=== PATIENT | male | born 1975 | race Caucasian/White ===

== ENCOUNTER 2022-01-25 16:28 | Emergency (ER) | payer BC, SELFPAY ==
[2022-01-25 16:30] VITALS: BP 168/89; PULSE 71; RESP 14; TEMP 37.2; O2SAT 98; BMI 33.7
--- NOTE | 2022-01-25 17:05 | EX.ED.DYSGE1 ---
HPI History of Present Illness Chief Complaint: Rash Informant: patient Narrative Narrative: 47-year-old male presents to the emergency room on day 3 of poison kimberly rash. Patient notes that it is spread to his face chest arms legs. This is not a new problem for him. He notes that he is very sensitive to poison kimberly. PFSH PFS Medical History no medical history no medical history Home Medications prednisone See Rx Instructions .ROUTE .COMPLEX #24 tablet 01/25/22 [Rx Last Taken Unknown] Allergy/AdvReac Type Severity Reaction Status Date / Time DAIRY Allergy Anaphylaxis Uncoded 01/25/22 16:29 Social History (Updated 01/25/22 @ 17:[address] Deshawn Castillo, DO) current gender identity: male Smoking Status: Never smoker substance use type: does not use ROS ROS ED Constitutional Constitutional ED: Denies chills, fever(s) or weight loss Eyes Eyes: Denies change in vision or diplopia ENT ENT ED: Denies ear pain, rhinorrhea or sore throat Cardiovascular Cardiovascular: Denies chest pain, orthopnea, palpitations or racing heartbeat Respiratory/Chest Respiratory/Chest: Denies cough, dyspnea or orthopnea Gastrointestinal Gastrointestinal: Denies abdominal pain, diarrhea, nausea or vomiting Genitourinary Genitourinary ED: Denies dysuria, hematuria or urinary frequency Musculoskeletal Musculoskeletal: Denies arthralgias or myalgias Integumentary Reports rash; Denies abscess Neurologic Neurologic: Denies headache(s) or weakness Psychiatric Psychiatric: Denies anxiety, depression, suicidal ideation or suicidal thoughts Endocrine Endocrinology: Denies polydipsia, polyphagia or polyuria Allergic/Immunologic Allergic/Immunologic ED: Denies mouth swelling, tongue swelling or urticaria EXAM Physical Exam Const Vital Signs: 01/25/22 16:30 Temperature 98.9 F Temperature Source Temporal Pulse Rate 71 Respiratory Rate 14 Blood Pressure 168/89 H Blood Pressure Mean 115 Pulse Ox 98 Oxygen Delivery Method Room Air Positive well nourished and well developed General Appearance ED: well developed HEENT Reports normocephalic, head/scalp atraumatic, TM's clear and moist mucous membranes Negative for trauma Tympanic Membrane ED: Yes TM's clear Eyes PERRL and EOMs intact bilaterally Neck no lymphadenopathy, supple and no JVD Resp normal respiratory effort and clear to auscultation bilaterally Cardio regular rate, regular rhythm and no murmurs GI normal to inspection, nondistended, normoactive bowel sounds and non-tender Palpation: soft Back/Spine no CVA tenderness and normal ROM Extremity normal to inspection General Extremety ED: Negative for edema General Extremity: Negative for edema Neuro oriented x3 and CN's II-XII intact bilaterally Sensorium / Orientation: alert Motor Exam: strength 5/5 throughout Psych mental status grossly normal Mood & Affect: Negative for depressed or tearful Skin no wounds Skin Narrative: Patient has crusting of rash consistent with Leonie dermatitis on his arms chest face legs. No evidence of secondary infection MDM MDM MDM Narrative Medical decision making narrative: Patient received a dose of Kenalog and a prescription for prednisone for 12 days. He is to follow-up with primary care as needed return if worsening or concerns Discharge Plan Triage Chief Complaint: Rash ED Provider: Deshawn Castillo Dx/Rx/DC Orders Clinical Impression: Allergic dermatitis due to poison kimberly Instructions: ED Poison Kimberly Rash Prescriptions: New prednisone 20 MG tablet See Rx Instructions .ROUTE .COMPLEX Qty: 24 RF: 0 Primary Care Provider: Care Physician,No Primary Referrals: Care Physician,No Primary [Primary Care Provider] - Donnie Rios NP, [employer] [Nurse Practitioner] - As Needed (For primary care) Disposition Disposition: Home, Self Care
[2022-01-25] MEDS: Triamcinolone Acetonide 40 MG/ML Vial 80 MG IM (17:39)
== END 2022-01-25 17:48 | disposition home or self-care (01) ==
LOC: ED 17:07
PROVIDERS: Emergency Provider Emergency Medicine; Visit Provider Emergency Medicine
DX: L23.7 Allergic contact dermatitis due to plants, except food (principal)
CPT/HCPCS: 96372; 99282

== ENCOUNTER 2023-07-13 17:38 | Emergency (ER) | payer BC, SELFPAY ==
[2023-07-13 17:40] VITALS: BP 183/91; PULSE 98; RESP 14; TEMP 36.4; O2SAT 99; BMI 32.8
--- NOTE | 2023-07-13 18:00 | EX.ED.SAOD ---
HPI History of Present Illness Chief Complaint: Substance Abuse Narrative Narrative: 48-year-old male past medical history of previous alcohol abuse, states that he is detoxing on his own. He used to drink 10-15 shots of alcohol daily. 5 days ago, he quit cold turkey. He states he has done that in the past before and has never entered rehab. He presents with his today for evaluation because over the last 1 to 2 days, he began feeling shaky, with headaches. He denies any nausea or vomiting. No abdominal pain. No chest pain or shortness of breath, no other symptoms. He presents today, mainly to be checked out. [facility] Medical History Alcohol abuse Home Medications prednisone 20 mg tablet See Rx Instructions .Route .COMPLEX #24 TABLETS 01/25/22 [Rx Last Taken Unknown] Allergy/AdvReac Type Severity Reaction Status Date / Time milk [dairy] Allergy Anaphylaxis Verified 07/13/23 17:43 Social History Smoking Status: Never smoker substance use type: does not use ROS ROS ED ROS Narrative Constitutional: No fever, no chills. HEENT: No sore throat. No neck pain. No loss of vision. No rhinorrhea. Cardiovascular: No chest pain. No palpitations. No pedal edema. Respiratory: No cough, no shortness of breath. Abdominal: No abdominal pain. No nausea. No vomiting. Genitourinary: No dysuria. No hematuria. Musculoskeletal: No myalgias. No arthralgias. Neurologic: Positive headaches. No dizziness. No lightheadedness. Positive shakiness. Skin: No rash. No change in color. Psychiatric: No depression. No anxiety. No suicidal ideation. EXAM Physical Exam Narrative Exam Narrative: Afebrile. Vital signs noted. HEENT: Normocephalic. Atraumatic. PERRL, EOMI. Neck soft and supple. No point tenderness or step off. Cardiovascular: Regular rate and rhythm. No tachycardia. No murmurs, rubs, or gallops appreciated. Respiratory: No tachypnea. Lungs clear to auscultation bilaterally. Gastrointestinal: Abdomen soft, nontender, with normoactive bowel sounds. No rebound or guarding. Neurological: Awake. Alert. Nonfocal, nonlateralizing. No tremors. Skin: No rash. Normal color. No pallor. Musculoskeletal: No pedal edema. Full range of motion extremities. Const Vital Signs: 07/13/23 17:40 Temperature 97.6 F L Temperature Source Temporal Pulse Rate 98 Respiratory Rate 14 Blood Pressure 183/91 H Blood Pressure Mean 121 Pulse Ox 99 Oxygen Delivery Method Room Air MDM MDM MDM Narrative Medical decision making narrative: I had a lengthy discussion with the patient and his . He states he does not want inpatient detox. Additionally, he is already 5 days out from his last drink of alcohol. He does have elevated blood pressure here of 183/91. He has not seen a primary care provider, and he may have underlying hypertension at baseline. While he is more than 24 to 48 hours out from his last drink of alcohol, and is at lower risk for seizure/withdrawal seizure, he was told of the risk that there is possibility of withdrawal seizures and other complications. Patient is insistent that he does not want inpatient detox, to be admitted to the hospital, and he states that he has successfully detoxed by himself previously. I discussed with him outpatient treatment for his alcoholism/alcohol abuse, he is more accepting of that. He will be given a one-time dose of Librium 50 mg here in the emergency department. I do feel that he can be discharged safely home with follow-up to primary care provider and outpatient detox/180. Additionally, I did speak with social work who gave him outpatient information. Return instructions to the emergency department were reviewed. Disposition is discharged home in stable condition. History & Record Review Discussion w/independent historian: Patient and Family Additional record(s) reviewed:: Prior ED visit Discharge Plan Triage Chief Complaint: Substance Abuse ED Provider: Bin Roman Dx/Rx/DC Orders Clinical Impression: Alcohol abuse, Alcohol withdrawal, Elevated blood pressure reading without diagnosis of hypertension Instructions: Alcohol Withdrawal: What to Expect, ED Withdrawal Alcohol, ED Alcohol Abuse Prescriptions: No Action prednisone 20 MG tablet See Rx Instructions .ROUTE .COMPLEX Qty: 24 0RF Rx Instructions: 3 tabs p.o. daily days 1 through 4, then 2 tabs p.o. daily days 5 through 8, then 1 tab p.o. daily day 9 through 12 Primary Care Provider: Care Physician,No Primary Referrals: Counseling,Center [Group of Physicians] - 2 Days Edwin Milligan MD [Med Staff - Active Staff] - As soon as possible Care Physician,No Primary [Primary Care Provider] - Activity Restrictions/Additional Instructions: Return with new or worsening symptoms. 180 Substance Abuse 24 hour hotline Disposition Disposition: Home, Self Care Discharge Date/Time: 07/13/23 18:26
[2023-07-13] MEDS: chlordiazePOXIDE 25 MG Capsule 50 MG PO (18:23)
--- NOTE | 2023-07-13 18:29 | CM.ED ---
Social Work SW introduced self and role to patient. Pt here for withdrawal symptoms. Pt stopped drinking 5 days ago and drank 10-15 shots daily. Pt reports withdrawal symptoms and patient and reviewed information about alcohol detox online and were concerned. Pt reports not being aware of health risks when quitting alcohol use. SW provided EL education and resources. SW recommended patient to call [facility] for outpatient services and establish with a primary care doctor for ongoing monitoring. Pt reports he will call [facility] and PCP. Nani Quezada [employer] TECHNICIAN, [employer]
== END 2023-07-13 18:26 | disposition home or self-care (01) ==
LOC: ED 18:04
PROVIDERS: Emergency Provider Emergency Medicine; Visit Provider Emergency Medicine
DX: F10.139 Alcohol abuse with withdrawal, unspecified (principal); R03.0 Elevated blood-pressure reading, without diagnosis of hypertension
CPT/HCPCS: 99282